=== PATIENT | male | born 2000 | race Caucasian/White ===

== ENCOUNTER → 2020-04-12 14:33 | Outpatient (CLI) | payer BC, SELFPAY ==
--- NOTE | 2020-04-12 14:42 | XR_ITS ---
PROCEDURE: XR CHEST 2V CLINICAL HISTORY: POSITIVE PPD COMPARISON: No exams were available for comparison FINDINGS: The lungs are somewhat under expanded. No acute bony abnormalities. Mildly increased thoracic kyphosis. The cardiomediastinal silhouette and pulmonary vascularity are within normal limits. The lungs are clear without infiltrates, suspicious nodules, or pleural effusions. IMPRESSION: 1. Normal exam. Dictated by: Mahogany Art 04/12/2020 14:57 Electronically signed by Mahogany Art in [place] 04/12/2020 14:57
== END ==
PROVIDERS: PCP Family Medicine; Visit Provider Family Medicine
DX: R76.11 Nonspecific reaction to tuberculin skin test without active tuberculosis (principal)
CPT/HCPCS: 71046

== ENCOUNTER 2020-10-05 16:14 | Emergency (ER) | payer BC, SELFPAY ==
[2020-10-05 16:50] VITALS: BP 146/90; PULSE 82; RESP 19; TEMP 36.6; O2SAT 98; BMI 41.5
--- NOTE | 2020-10-05 17:18 | HMH.EDUTC ---
[facility] [place] Clinical Impression: Exposure to COVID-19 virus Disposition: Home, Self-Care Condition on Discharge: Good Instructions: DI for COVID-19 (Suspected or Confirmed ), Coronavirus Disease 2019, Preventing the Spread of Coronavirus Discharge Instructions Additional Instructions: *Monitor Temp, Over the counter Motrin or Tylenol as directed/as needed Tylenol every 4 hours and Motrin every 6 hours (as long as your family doctor has told you that you can take it) for fever or pain. and straight to ER if unable to lower temp less than 101.0 after medication given Follow up IMMEDIATELY for new or worsening symptoms or no Noticeable improvement over the next 48-72 hours. 911 for difficulty breathing or swallowing You were tested for today for COVID19 your test result should be back in the next 24-48 hours, you may call to the [facility] to see if your test results are back in the next 48 hours [phone] [facility] hours are 9am-9pm You was given a handout with instructions for Self Quarantine and Self isolation for while you wait on test results and what to do if they are positive If you are positive the Health Dept will be contacting you also Referrals: Rommel Gtz MD [Primary Care Provider] - As needed Forms: Work/School Release Time of Disposition: 17:20 Medical Decision Making - Primo Inquiry Pt receiving controlled substance: No Primo was queried for this patient: No Vital Signs: 10/05/20 16:50 Temperature 97.8 F Temperature Source Oral Pulse Rate [Right Brachial] 82 Respiratory Rate 19 Blood Pressure [Right Arm] 146/90 H Blood Pressure Mean [Right Arm] 108 Blood Pressure Source [Right Arm] Automatic Cuff Blood Pressure Position [Right Arm] Sitting 02 Sat by Pulse Oximetry 98 Oxygen Delivery Method Room Air Orders (Tests/Meds): ORDERS Category Date Time Status Covid-19 Nasal PCR ([facility]) Routine Lab 10/05/20 16:45 Ordered [facility] [place] HPI - General Stated complaint: covid test Time Seen by Provider: 10/05/20 17:18 Mode of Arrival: Ambulatory Source of Information: Patient Limitations: No Limitations Description of Symptoms (Recalled from Triage Doc. by RN): COVID TEST D/T EXPOSURE. NO SYMPTOMS HEENT Symptoms (Recalled from RN notes): No Resp Symptoms (Recalled from RN notes): No Skin Symptoms (Recalled from RN notes): No MS Symptoms (Recalled from RN notes): No Functional Status (Recalled from RN notes): WNL - History of Present Illness Provider Complaint: Patient state that he was recently around someone that has since tested postive for COVID State that he is not having any symptoms but due to exposure wanted to get tested - Related Data Previous Rx's Medication Instructions Recorded amoxicillin 500 mg capsule 500 mg PO Q12H 10 Days #20 cap 10/02/19 Allergies Allergy/AdvReac Type Severity Reaction Status Date / Time No Known Allergies Allergy Verified 10/02/19 19:05 - Worker's Comp Is this a Worker's Comp case?: No [facility] History - Hepatitis A Screen Drug use history?: No High risk sexual behaviors?: No History of sexually transmitted infection?: No Currently employed?: No Childcare worker?: No Do you have indoor plumbing?: Yes Do you have electricity?: Yes Attestation statement:: This patient has been screened for Hepatitis A risk factors. I have reviewed the patient's past medical history: Yes Medical History: Reports:: Seizures (when he was very young (5-6)) Laterality Cases: Bilateral: Tonsillectomy Amputation: No Fractures: No - Social History Smoking Status: Never smoker Alcohol Intake: never Substance Use Type: denies use Occupational Status: employed Housing: house Household Members: family Family Hx:: Hypertension ROS Obtained: Yes All systems reviewed & no additional complaints, Yes Systems reviewed as appropriate & no additional complaints - Constitutional Constitutional: Reports system reviewed and no additional complaints, except as docu
[2020-10-05 17:28] VITALS: BP 146/90; PULSE 82; RESP 19; TEMP 36.6; O2SAT 98
== END 2020-10-05 17:30 | disposition home or self-care (01) ==
PROVIDERS: Emergency Provider Nurse Practitioner; PCP Family Medicine
DX: Z20.822 Contact with and (suspected) exposure to COVID-19 (principal)
CPT/HCPCS: 99202; G0463; U0003

== ENCOUNTER → 2021-02-28 15:43 | Outpatient (CLI) | payer BC, SELFPAY | PROVIDERS: Visit Provider Family Medicine | DX: R76.11 Nonspecific reaction to tuberculin skin test without active tuberculosis (principal) ==

== ENCOUNTER → 2021-03-04 11:46 | Outpatient (CLI) | payer BC, SELFPAY ==
[2021-03-07 19:15] LABS: QuantiFERON-TB Gold Plus Negative (Negative)
== END ==
PROVIDERS: Visit Provider Family Medicine
DX: R76.11 Nonspecific reaction to tuberculin skin test without active tuberculosis (principal)
CPT/HCPCS: 36415; 86480

== ENCOUNTER 2021-07-23 11:07 | Emergency (ER) | payer BC, SELFPAY ==
[2021-07-23 13:00] VITALS: BP 143/90; PULSE 70; RESP 18; TEMP 36.9; O2SAT 97; BMI 43.0
[2021-07-23 13:09] LABS: UTC Strep Screen (Rapid) Negative (Negative)
[2021-07-23 13:14] VITALS: BP 143/90; PULSE 70; RESP 16; TEMP 36.9
--- NOTE | 2021-07-23 13:27 | HMH.EDUTC ---
[facility] [place] Clinical Impression: Sinusitis Qualifiers: Sinusitis location: unspecified location Chronicity: acute Recurrence: non-recurrent Qualified Code(s): J01.90 - Acute sinusitis, unspecified Pharyngitis Qualifiers: Pharyngitis/tonsillitis etiology: unspecified etiology Qualified Code(s): J02.9 - Acute pharyngitis, unspecified Disposition: Home, Self-Care Condition on Discharge: Good Instructions: Sinusitis, DI for Pharyngitis/Tonsillopharyngitis -- Adult, DI for Sinusitis, Preventing the Spread of Coronavirus Discharge Instructions Additional Instructions: Drink plenty of fluids. Take tylenol or ibuprofen for pain or fever. Take the medications as directed. Follow up with your regular doctor. GO TO THE ER FOR ANY WORSENING SYMPTOMS Quarantine until you know the results of your covid-19 test. If it is positive, the health department should call you and give you further instructions about your length of Quarantine and other things. Notify your school or workplace of your results and follow their instructions regarding return to work/school. Prescriptions: Brompheniramine/Pseudoephed/Dm [Bromfed Dm Cough Syrup] 5 ml PO Q6HP PRN #240 ml PRN Reason: Cough Transmission Status: Received by [facility] methylPREDNISolone [Medrol] 4 mg PO DIRECTED 6 Days #21 packet Transmission Status: Received by [facility] Azithromycin [Z-Chavez 250mg Tab*] 250 mg PO UD DOSE PK #6 tab Transmission Status: Received by [facility] Referrals: Rommel Gtz MD [Primary Care Provider] - Forms: Work/School Release Time of Disposition: 13:36 Medical Decision Making - Medical Records Medical records reviewed: No: I reviewed the patient's medical records. - Primo Inquiry Pt receiving controlled substance: No Vital Signs: 07/23/21 13:00 07/23/21 13:14 Temperature 98.4 F 98.4 F Temperature Source Oral Pulse Rate 70 Pulse Rate [Left] 70 Respiratory Rate 18 16 Blood Pressure 143/90 H Blood Pressure [Right Arm] 143/90 H Blood Pressure Mean [Right Arm] 107 02 Sat by Pulse Oximetry 97 - Lab Data Lab results reviewed: Yes: I reviewed the patient's lab results. Lab Results 07/23/21 13:02: Strep Scn Rapid Clinic Negative Orders (Tests/Meds): ORDERS Category Date Time Status Strep Screen Confirmation Stat Micro 07/23/21 13:02 Received [facility] [place] HPI - General Stated complaint: sore throat, cough, runny nose Time Seen by Provider: 07/23/21 13:27 Mode of Arrival: Ambulatory Source of Information: Patient Limitations: No Limitations Description of Symptoms (Recalled from Triage Doc. by RN): pt c/o cough, sore thoat, and nasal drainage since this am. HEENT Symptoms (Recalled from RN notes): Yes (sore throat and nasal drainage) Resp Symptoms (Recalled from RN notes): Yes (cough) Skin Symptoms (Recalled from RN notes): No MS Symptoms (Recalled from RN notes): No Functional Status (Recalled from RN notes): na - History of Present Illness Provider Complaint: He c/o sore throat and sinus congestion since yesterday. He also has a nonproductive cough. He denies fever but he has been chilling since this morning - Related Data Previous Rx's Medication Instructions Recorded amoxicillin 500 mg capsule 500 mg PO Q12H 10 Days #20 cap 10/02/19 Azithromycin [Z-Chavez 250mg Tab*] 250 mg PO UD DOSE PK #6 tab 07/23/21 Brompheniramine/Pseudoephed/Dm 5 ml PO Q6HP PRN #240 ml 07/23/21 [Bromfed Dm Cough Syrup] methylPREDNISolone [Medrol] 4 mg PO DIRECTED 6 Days #21 07/23/21 packet Allergies Allergy/AdvReac Type Severity Reaction Status Date / Time No Known Allergies Allergy Verified 10/02/19 19:05 - Worker's Comp Is this a Worker's Comp case?: No [facility] History - Hepatitis A Screen Drug use history?: No High risk sexual behaviors?: No History of sexually transmitted infection?: No Currently employed?: No Childcare worker?: No Do you have indoor plumbi
== END 2021-07-23 13:50 | disposition home or self-care (01) ==
PROVIDERS: Emergency Provider Nurse Practitioner Family; PCP Family Medicine
DX: J01.90 Acute sinusitis, unspecified (principal)
CPT/HCPCS: 87880; 99203; C9803; G0463; U0003; U0005

== ENCOUNTER 2021-08-17 18:13 | Emergency (ER) | payer BC, SELFPAY ==
[2021-08-17 19:26] VITALS: BP 147/87; PULSE 98; RESP 20; TEMP 38.4; O2SAT 97; BMI 42.3
--- NOTE | 2021-08-17 19:26 | XR_ITS ---
PROCEDURE INFORMATION: Exam: XR Chest Exam date and time: 08/17/2021 7:26 PM Age: 21 years old Clinical indication: Cough TECHNIQUE: Imaging protocol: XR of the chest. Views: 2 views. COMPARISON: CR XR CHEST 2V 04/12/2020 2:45 PM FINDINGS: Lungs: Unremarkable. No consolidation. Pleural spaces: Unremarkable. No pleural effusion. No pneumothorax. Heart/Mediastinum: Unremarkable. No cardiomegaly. Bones/joints: Unremarkable. IMPRESSION: No acute findings.
--- NOTE | 2021-08-17 19:54 | HMH.EDUTC ---
[facility] – [place] Disposition Clinical Impression: Viral syndrome, Bronchitis Pharyngitis Qualifiers: Pharyngitis/tonsillitis etiology: unspecified etiology Qualified Code(s): J02.9 - Acute pharyngitis, unspecified Disposition: Home, Self-Care Condition on Discharge: Good Instructions: Preventing the Spread of Coronavirus Discharge Instructions, DI for COVID-19 (Suspected or Confirmed ), DI for Acute Bronchitis Additional Instructions: Drink plenty of fluids. Take tylenol or ibuprofen for pain or fever. Take the medications as directed. Follow up with your regular doctor. GO TO THE ER FOR ANY WORSENING SYMPTOMS Quarantine until you know the results of your covid-19 test. If it is positive, the health department should call you and give you further instructions about your length of Quarantine and other things. Notify your school or workplace of your results and follow their instructions regarding return to work/school. The cough medication (promethazine dm) will make you drowsy, so don't drive or operate heavy machinery after taking it. Prescriptions: Albuterol Sulfate [Albuterol Sulfate Hfa] 2 puffs IH Q6HP PRN 30 Days #1 each PRN Reason: Shortness Of Breath Transmission Status: Pending to [facility] Promethazine/Dextromethorphan [Promethazine-Dm Syrup] 5 ml PO Q6HP PRN #240 ml PRN Reason: Cough Transmission Status: Pending to [facility] dexAMETHasone [Decadron] 6 mg PO DAILY 6 Days #6 tab Transmission Status: Pending to [facility] Azithromycin [Z-Chavez 250mg Tab*] 250 mg PO UD DOSE PK #6 tab Transmission Status: Pending to [facility] Referrals: Rommel Gtz MD [Primary Care Provider] - Forms: Work/School Release Time of Disposition: 20:22 Medical Decision Making - Medical Records Medical records reviewed: No: I reviewed the patient's medical records. - Primo Inquiry Pt receiving controlled substance: No Vital Signs: 08/17/21 19:26 Temperature 101.2 F H Temperature Source Oral Pulse Rate [Left] 98 H Respiratory Rate 20 Blood Pressure [Right Arm] 147/87 H Blood Pressure Mean [Right Arm] 107 02 Sat by Pulse Oximetry 97 - Lab Data Lab results reviewed: Yes: I reviewed the patient's lab results. Lab Results 08/17/21 19:33: Strep Scn Rapid Clinic Negative Orders (Tests/Meds): ORDERS Category Date Time Status Chest XR 2 view (NOT portable) [XR chest 2V] Stat Exams 08/17/21 19:26 Taken Covid-19 Nasal PCR ([facility]) Routine Lab 08/17/21 19:45 Received Strep Screen Confirmation Stat Micro 08/17/21 19:33 Received [facility] UTC HPI - General Stated complaint: covid symptoms and test Time Seen by Provider: 08/17/21 19:54 Mode of Arrival: Ambulatory Source of Information: Patient Limitations: No Limitations Description of Symptoms (Recalled from Triage Doc. by RN): pt c/o a nonproductive cough, MOODY, soreness, sore throat, soa, and lung tightness. x1 day HEENT Symptoms (Recalled from RN notes): Yes (MOODY and sore throat) Resp Symptoms (Recalled from RN notes): Yes (nonproductive cough, soa and tightness in his lungs.) Skin Symptoms (Recalled from RN notes): No MS Symptoms (Recalled from RN notes): No Functional Status (Recalled from RN notes): wnl - History of Present Illness Provider Complaint: He states that he has felt bad since yesterday morning. He started having a cough and chest congestion last night. Today he has ran a fever, had body aches and felt very tired and exhausted. - Related Data Previous Rx's Medication Instructions Recorded amoxicillin 500 mg capsule 500 mg PO Q12H 10 Days #20 cap 10/02/19 Azithromycin [Z-Chavez 250mg Tab*] 250 mg PO UD DOSE PK #6 tab 07/23/21 Brompheniramine/Pseudoephed/Dm 5 ml PO Q6HP PRN #240 ml 07/23/21 [Bromfed Dm Cough Syrup] methylPREDNISolone [Medrol] 4 mg PO DIRECTED 6 Days #21 07/23/21 packet Albuterol Sulfate [Albuterol 2 puffs IH Q6HP PRN 30 Days #1 each 08/17/21 Sulfate Hfa] Azithromycin [Z-P
[2021-08-17 20:08] LABS: UTC Strep Screen (Rapid) Negative (Negative)
[2021-08-17 20:16] LABS: UTC Influenza A Antigen Negative (Negative)
[2021-08-17 20:17] LABS: UTC Influenza B Antigen Negative (Negative)
[2021-08-17 20:34] LABS: Adenovirus,PCR Not Detected (NotDetected); Bordetella Pertussis Not Detected (NotDetected); Chlamydophila Pneumoniae, PCR Not Detected (NotDetected); Coronavirus 19, PCR Not Detected (NotDetected); Coronavirus 229E Not Detected (NotDetected); Coronavirus NL63 Not Detected (NotDetected); Coronavirus OC43 Not Detected (NotDetected); Coronovirus HKU1,PCR Not Detected (NotDetected); Human Metapneumovirus Not Detected (NotDetected); Influenza A, PCR Not Detected (NotDetected); Influenza AH1, 2009 Not Detected (NotDetected); Influenza AH1, PCR Not Detected (NotDetected); Influenza B, PCR Not Detected (NotDetected); Mycoplasma Pneumoniae, PCR Not Detected (NotDetected); Parainfluenza 1, PCR Not Detected (NotDetected); Parainfluenza 2, PCR Not Detected (NotDetected); Parainfluenza 3, PCR Not Detected (NotDetected); Parainfluenza 4, PCR Not Detected (NotDetected); Respiratory Syncytial Virus Not Detected (NotDetected); Rhinovirus/Enterovirus Not Detected (NotDetected)
[2021-08-17 20:44] VITALS: BP 147/87; PULSE 98; RESP 20; TEMP 38.3
[2021-08-17 21:47] LABS: Influenza AH3,PCR Detected (NotDetected)
== END 2021-08-17 20:54 | disposition home or self-care (01) ==
PROVIDERS: Emergency Provider Nurse Practitioner Family; PCP Family Medicine
DX: J10.1 Influenza due to other identified influenza virus with other respiratory manifestations (principal); J20.9 Acute bronchitis, unspecified
CPT/HCPCS: 71046; 87581; 87632; 87798; 87804; 87880; 96372; 99202; C9803; G0463; U0003; U0005

== ENCOUNTER → 2021-09-16 12:31 | Outpatient (CLI) | payer BC, SELFPAY | PROVIDERS: PCP Family Medicine; Visit Provider Nurse Practitioner Family | DX: Z20.822 Contact with and (suspected) exposure to COVID-19 (principal) | CPT/HCPCS: C9803; U0003; U0005 ==

== ENCOUNTER → 2021-10-13 10:29 | Outpatient (CLI) | payer BC, SELFPAY ==
[2021-10-14 06:51] LABS: Covid-19 Nasal PCR Sendout Lex POSITIVE
== END ==
PROVIDERS: PCP Family Medicine; Visit Provider Nurse Practitioner
DX: U07.1 COVID-19 (principal)
CPT/HCPCS: C9803; U0004; U0005

== ENCOUNTER → 2022-11-26 16:56 | Outpatient (CLI) | payer BC, SELFPAY ==
--- NOTE | 2022-11-26 17:01 | XR_ITS ---
PROCEDURE INFORMATION: Exam: XR Left Hand Exam date and time: 11/26/2022 5:04 PM Age: 22 years old Clinical indication: Injury or trauma; Other: Crushed 3rd and 4th left fingers moving appliances. Blunt trauma (contusions or hematomas); Hand; Additional info: Finger pain, left TECHNIQUE: Imaging protocol: Radiologic exam of the left hand. Views: 3 or more views. COMPARISON: No relevant prior studies available. FINDINGS: Bones/joints: No definite fracture or dislocation. No significant bony arthritic deformities.There are no lytic skeletal lesions seen. Bone mineralization appears normal. Soft tissues: Soft tissue swelling. No radiopaque foreign bodies. No soft tissue emphysema. IMPRESSION: 1. No acute fracture or dislocation. 2. Soft tissue swelling.
== END ==
LOC: RAD 16:56
PROVIDERS: PCP Family Medicine; Visit Provider Nurse Practitioner Family
DX: M79.645 Pain in left finger(s) (principal)
CPT/HCPCS: 73130